=== PATIENT | female | born 1930 | race Caucasian/White ===

== ENCOUNTER 2018-01-25 20:27 | Inpatient (IN) ==
[2018-01-25] MEDS ORDERED: Sod Chloride 0.9% Inj 1,000 ML IV.CONT SCH (21:15)
[2018-01-25] MEDS ORDERED: Labetalol HCl Inj 100 MG/20 ML Vial IV.PUSH ONE (21:15)
--- NOTE | 2018-01-25 21:55 | XR ---
EXAM DATE: 01/25/2018 9:51 PM EDT AGE/SEX: 87 years / Female INDICATIONS: Chest pain. CLINICAL DATA: This is the patient's initial encounter. Patient reports that signs and symptoms have been present for 1 day and indicates a pain score of 10/10. MEDICAL/SURGICAL HISTORY: None. None. COMPARISON: No prior exams available for comparison. FINDINGS: A single AP view of the chest demonstrates the lungs to be symmetrically aerated without evidence of mass, infiltrate or effusion. Tracheal calcifications are present. There are overlying electrocardio gram leads. The cardiomediastinal contours are unremarkable. Osseous structures are intact with mild scoliosis. CONCLUSION: No acute cardiopulmonary disease. Electronically signed by: Howard Taveras MD 01/25/2018 9:54 PM EDT
[2018-01-25 22:23] LABS: Activated Partial Thrombo Time 26.1 sec (24.3-30.1); INR 1.2 Ratio; Prothrombin Time 12.1 sec (9.8-11.6)
--- NOTE | 2018-01-25 22:26 | CT ---
EXAM DATE: 01/25/2018 10:15 PM EDT AGE/SEX: 87 years / Female INDICATIONS: Altered mental status. CLINICAL DATA: This is the patient's initial encounter. Patient reports that signs and symptoms have been present for 1 day and indicates a pain score of 0/10. MEDICAL/SURGICAL HISTORY: Diabetes. Hypertension. None. RADIATION DOSE: 56.35 CTDI (mGy) COMPARISON: No prior exams available for comparison. TECHNIQUE: CT of the head without contrast. Using automated exposure control and adjustment of the mA and/or kV according to patient size, radiation dose was kept as low as reasonably achievable to ob tain optimal diagnostic quality images. DICOM format image data is available electronically for revi ew and comparison. FINDINGS: Cerebrum: The ventricles are normal for age with diffuse moderate atrophic change with sulcal and ve ntricular prominence. Extensive periventricular white matter lucencies are noted characteristic of sm all vessel ischemic change. Calcifications noted in the basal ganglia. No evidence of midline shift, mass lesion, hemorrhage or acute infarction. No extraaxial fluid collections are seen. Posterior Fossa: The cerebellum and brainstem are intact. The 4th ventricle is midline. The cerebe llopontine angle is unremarkable. Extracranial: The visualized portion of the orbits is intact. Skull: The calvaria is intact. No evidence of skull fracture. CONCLUSION: 1. Atrophy and extensive chronic small vessel ischemic changes. Electronically signed by: Howard Taveras MD 01/25/2018 10:25 PM EDT
[2018-01-25 22:42] LABS: Anion Gap 10 meq/L (5-15); Blood Urea Nitrogen 31 mg/dL (7-18); Calcium 8.6 mg/dL (8.5-10.1); Carbon Dioxide 30.1 meq/L (21.0-32.0); Chloride 96 meq/L (98-107); Creatine Kinase 63 U/L (26-192); Glomerular Filtration Rate 72 mL/min (>89); Glucose,Random 370 mg/dL (74-106); Potassium 3.7 meq/L (3.5-5.1); Sodium 136 meq/L (136-145)
--- NOTE | 2018-01-26 00:08 | ED ---
HPI General Chief Complaint: Neuro Symptoms/Deficit Stated Complaint: High Blood sugar Time Seen by Provider: 01/25/18 21:04 History of Present Illness HPI narrative: Patient is a 87-year-old female she lives alone her daughter noticed that she has been having mental deterioration over the last few weeks. Daughter had visited with her about a month ago and now she is finding that the patient seems to not be doing well patient is living in independent living however the visiting nurse who takes care of her meds said the patient is not taking her meds for high blood pressure she is only taking pain medications. The daughter called me to discuss this and she is very worried that she is taking meds that too many pain meds and not taking her pressure meds or her diabetic meds. Tonight she was talking with her mother and the phones thought the mother found it sounded confused and garbled speech the daughter called her aunt who is the patient's sister patient's sister found the patient to have facial droop on the left as well as garbled speech and then halted speech paramedics called patient arrived by EMS in the ER she has no obvious focal deficits initial neuro exam she has no focal deficits whatsoever however in the middle of sentence she will be searching for word and she will stare and stop speaking it seems obvious she is searching for a word and then to stop since midsentence. She is CAT scan labs urine chest x-ray are all ordered patient will probably be admitted for repeat TIA I discussed in detail patient's course with the daughter who calls me from [place]. The patient herself when I asked her if she has any complaints just says she feels cold I ask her what happened tonight she said she was eating dinner in the middle she suddenly just felt very cold that is her only complaint. 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 but she is unaware of what the diagnosis might be possible acute delirium versus progressive dementia versus intoxication with possible pain medication or other Related Data Home Medications Medication Instructions Recorded Confirmed sitagliptin [Januvia] See Label Instructions .ROUTE 01/25/18 01/26/18 .COMPLEX Allergies Allergy/AdvReac Type Severity Reaction Status Date / Time NSAIDS (Non-Steroidal Allergy Hives Verified 01/25/18 21:01 Anti-Inflamma Penicillins Allergy Hives Verified 01/25/18 21:01 Review of Systems Except as stated in HPI: all other systems reviewed are negative COUNTS INCLUDE 234 BEDS AT THE [facility] Medical History Medical History Diabetes (Acute) HTN (hypertension) (Acute) Social History Social History Substance History: No History of Abuse Smoking Status: Former smoker Tobacco Type: Cigarettes How Often Do You Have a Drink Containing Alcohol: Never Recent Travel in [facility] within the Last 8 Weeks: No Recent Out of Country Travel within the Last 8 Weeks: No Course Initial Documented Vital Signs Temperature 98.7 F 01/25/18 21:08 Pulse Rate 96 H 01/25/18 21:08 Respiratory Rate 16 01/25/18 21:08 Blood Pressure 204/97 H 01/25/18 21:08 Pulse Oximetry 91 L 01/25/18 21:08 Last Documented Vital Signs Temperature 98.7 F 01/25/18 21:08 Pulse Rate 85 01/26/18 01:13 Respiratory Rate 16 01/26/18 01:13 Blood Pressure 195/92 H 01/26/18 01:13 Pulse Oximetry 98 01/26/18 01:13 Medical Decision Making [facility] Narrative Medical decision making narrative: Patient is a CT of her head to rule out any bleed or stroke is negative patient has urine that is negative chest x-ray is done it is read as negative however I think there is some kind of focal possible density in the right lower lobe patient's other labs are within normal limits I discussed at length with her daughter who calls me from [place] the deterioration of her mother's mentation over the last few weeks apparently her in April 2017 and patient has been slowly steadily declining at this point I will admit her for further eval neurology consult as well as possible MRI in the morning Differential Diagnosis Differential Diagnosis: Differential diagnosis includes UTI with neural involvement versus TIA versus CVA versus intoxication with opioids progressive deterioration in mental functioning versus a hypothyroidism versus cardiac ischemia causing anoxic brain issues other Lab Data Result diagrams: 01/25/18 21:46 Lab Results 01/25/18 01/25/18 01/25/18 Range/Units 21:46 21:46 21:46 PT 12.1 H (9.8-11.6) sec INR 1.2 Ratio APTT 26.1 (24.3-30.1) sec Sodium 136 (136-145) meq/L Potassium 3.7 (3.5-5.1) meq/L Chloride 96 L (98-107) meq/L Carbon Dioxide 30.1 (21.0-32.0) meq/L Anion Gap 10 (5-15) meq/L BUN 31 H (7-18) mg/dL Creatinine 0.76 (0.50-1.00) mg/dL Estimated GFR 72 L (>89) mL/min Random Glucose 370 H (74-106) mg/dL Calcium 8.6 (8.5-10.1) mg/dL Total Creatine Kinase 63 (26-192) U/L Troponin I Less than 0.02 L (0.02-0.05) ng/mL Blood Type O Positive Blood Type Recheck Required Antibody Screen Negative Imaging Data Radiologist's impression: Head CT 01/25/18 21:15 CONCLUSION: 1. Atrophy and extensive chronic small vessel ischemic changes. Chest X-Ray 01/25/18 21:16 CONCLUSION: No acute cardiopulmonary disease. Discharge Plan Discharge Disposition Patient Disposition: 30 Still Patient Discharge Condition Condition: Stable Discharge Details Diagnosis: Brain TIA Physicians Team ED Provider: Dru Pineda Primary Care Provider: UNKNOWN, Attending Provider: Chelsey Urias Other Providers: Kayden Coker Status ED Status: Admitted Patient
[2018-01-26] MEDS ORDERED: Temazepam 15 MG Capsule PO PRN (00:20)
[2018-01-26] MEDS ORDERED: Bisacodyl 10 MG Supp RECTAL PRN (00:20)
[2018-01-26] MEDS ORDERED: Dextrose 50% in Water 50 ML Vial IV.PUSH PRN (00:20)
[2018-01-26 02:15] LABS: Amorphous Sediment,Urine Rare /hpf; Bacteria,Urine Moderate /hpf; Bilirubin,Urine Negative (Negative); Clarity,Urine Cloudy (Clear); Color,Urine Yellow (Yellw/Straw); Glucose,Urine (UA) 500 or Greater mg/dL (Negative); Leukocyte Esterase,Urine Large (Negative); Mucus,Urine Few /lpf (Occasional); Nitrite,Urine Negative (Negative); Specific Gravity,Urine 1.024 (1.002-1.035); Squamous Epithelial Cell,Urine 21 /hpf (0-5)
[2018-01-26 02:19] LABS: Amphetamine Screen,Urine Neg (Neg); Barbiturate Screen,Urine Neg (Neg); Cannabinoid Screen,Urine Neg (Neg); Cocaine Screen,Urine Neg (Neg)
--- NOTE | 2018-01-26 02:21 | P.HPIM ---
History of Present Illness Primary Care Physician: UNKNOWN History of Present Illness: This is an 87-year-old female with a PMH of HTN and DM who was brought to the ER for facial droop and expressive aphasia. Per report, daughter spoke to patient over the phone and noticed she had some slurred speech, EMS was called approximately 2 hours later at which time symptoms had resolved. Denies any motor weakness. On arrival, BP 221/98, HR 100, O2 sat 98% on 2L NC, Afebrile. S/p Labetalol in ER w/ BP 180's. Chemistry essentially unremarkable. INR 1.2. UA pending. CT Head with atrophy and extensive chronic small vessel ischemic changes. CXR with no acute findings. - Diagnosis (1) TIA (transient ischemic attack) (2) HTN (hypertension) (3) DM (diabetes mellitus) Inpatient Certification: I certify that the inpatient services were ordered in accordance with Medicare regulations governing the order. This includes certification that hospital inpatient services are reasonable and necessary and in the case of services not specified as inpatient-only under 42 CFR 419.22(n), that they are appropriately provided as inpatient services in accordance to with the 2-midnight benchmark under 43 CFR 412.3(e) Estimated Total Length of Stay (Days): 2 Plans for Post Hospital Care: Not yet determined Review of Systems All other systems reviewed negative except as stated in HPI PMFSH - History History Provided By: Patient - Medical History Medical History: Medical History (Last Updated 01/25/18 @ 21:10 by Royce Simpson) Diabetes HTN (hypertension) - Tobacco History Tobacco Use In Past 30 Days: No Smoking Status: Former smoker Tobacco Type: Cigarettes - Alcohol History How Often Do You Have a Drink Containing Alcohol: Never - Substance Use History Substance History: No History of Abuse - Travel History Recent Travel in the [place] Within the Last 8 Weeks: No Recent Travel Out of the Country Within the Last 8 Weeks: No - Immunization History Tetanus Immunization: <5 Years Hx Influenza Vaccine This Season: Yes Medications and Allergies Active Medications: Active Medications Al Hydroxide/Mg Hydroxide (Milk Of Magnaide Liq) 30 ml PO Q12H PRN PRN Reason: Mild Constipation Bisacodyl (Dulcolax Supp) 10 mg RECTAL DAILY PRN PRN Reason: SEVERE CONSITIPATION Dextrose (D50w Vial) 50 ml IV.PUSH UNSCH PRN PRN Reason: PER HYPOGLYCEMIA PROTOCOL Enalaprilat (Vasotec Inj) 1.25 mg IV.PUSH Q4H PRN PRN Reason: For SBP > 220 or DBP > 120 Glucagon (Glucagon Inj) 1 mg OTHER PRN PRN PRN Reason: for Hypoglycemia Protocol Sodium Chloride (Ns Inj) 1,000 mls @ 70 mls/hr IV.CONT .[id number] [facility] Stop: 01/26/18 11:32 Last Admin: 01/25/18 21:32 Dose: 70 mls/hr Insulin Aspart (Novolog Insulin Correctional Sugar Inj) 0 unit SQ ACHS RAMÍREZ; Protocol Lactulose (Lactulose Liq) 30 ml PO DAILY PRN PRN Reason: SEVERE CONSITIPATION Ondansetron HCl (Zofran Odt) 4 mg PO Q6H PRN PRN Reason: NAUSEA OR VOMITING Pravastatin Sodium (Pravachol) 40 mg PO HS RAMÍREZ Senna/Docusate Sodium (Ailyn-Colace) 1 tab PO BID [facility] Sennosides (Senokot) 17.2 mg PO Q12H PRN PRN Reason: Moderate Constipation Sodium Chloride (Ns Flush) 2 ml IV.FLUSH PRN PRN PRN Reason: FLUSH AFTER USING IV ACCESS Sodium Chloride (Ns Flush) 2 ml IV.FLUSH BID RAMÍREZ Sodium Chloride (Ns Flush) 2 ml IV.FLUSH PRN PRN PRN Reason: FLUSH AFTER USING IV ACCESS Temazepam (Restoril) 15 mg PO HS PRN PRN Reason: INSOMNIA Allergies Allergy/AdvReac Type Severity Reaction Status Date / Time NSAIDS (Non-Steroidal Allergy Hives Verified 01/25/18 21:01 Anti-Inflamma Penicillins Allergy Hives Verified 01/25/18 21:01 Home Medications Medication Instructions Recorded Confirmed Type sitagliptin [Januvia] See Label Instructions .ROUTE 01/25/18 01/26/18 History .COMPLEX Exam Vital signs: Vital Signs 01/25/18 21:08 01/25/18 21:11 01/25/18 22:01 Temperature 98.7 F Pulse Rate 96 H 100 H 91 H Respiratory Rate 16 18 18 Blood Pressure 204/97 H 221/98 H 193/84 H Pulse Oximetry 91 L 98 98 01/25/18 22:16 01/25/18 22:22 01/25/18 23:30 Temperature Pulse Rate 87 Respiratory Rate 18 Blood Pressure 186/91 H 186/91 H Pulse Oximetry 98 97 01/26/18 01:13 Temperature Pulse Rate 85 Respiratory Rate 16 Blood Pressure 195/92 H Pulse Oximetry 98 Intake & Output 01/25/18 01/25/18 01/26/18 06:59 18:59 06:59 Weight 65.771 kg Other: # Voids 1 Narrative: PE: GENERAL: Very pleasant elderly white female in no acute distress. HEENT: PERRLA, EOMI. No scleral icterus or conjunctival pallor. No lid lag or facial droop. CARDIOVASCULAR: Regular rate and rhythm. No obvious murmurs to auscultation. No chest tenderness to palpation. RESPIRATORY: No obvious rhonchi or wheezing. Clear to auscultation. Breath sounds equal bilaterally. GASTROINTESTINAL: Abdomen soft, non-tender, nondistended. BS normal. MUSCULOSKELETAL: Extremities without clubbing, cyanosis, or edema. No obvious deformities. NEUROLOGICAL: Awake, alert and oriented x4. No focal neurologic deficits. Moving both upper and lower extremities spontaneously. Results - Labs CBC & Chem 7: 01/25/18 21:46 Labs: BMP 01/25/18 21:46 Sodium 136 Potassium 3.7 Chloride 96 L Carbon Dioxide 30.1 BUN 31 H Creatinine 0.76 Calcium 8.6 Cardiac Enzymes 01/25/18 Range/Units 21:46 Total Creatine Kinase 63 (26-192) U/L Troponin I Less than 0.02 L (0.02-0.05) ng/mL - Imaging Impressions Head CT 01/25/18 21:15 CONCLUSION: 1. Atrophy and extensive chronic small vessel ischemic changes. Chest X-Ray 01/25/18 21:16 CONCLUSION: No acute cardiopulmonary disease. Caprini VTE Risk Assessment Caprini VTE Risk Assessment: No/Low Risk (score <= 1) Caprini Risk Assessment Model: Point Value = 1 Point Value = 2 Point Value = 3 Point Value = 5 Age 41-60 Minor surgery BMI > 25 kg/m2 Swollen legs Varicose veins or History of unexplained or recurrent spontaneous Oral contraceptives or hormone replacement Sepsis (< 1 month) Serious lung disease, including pneumonia (< 1 month) Abnormal pulmonary function Acute myocardial infarction Congestive heart failure (< 1 month) History of inflammatory bowel disease Medical patient at bed rest Age 61-74 Arthroscopic surgery Major open surgery (> 45 min) Laparoscopic surgery (> 45 min) Malignancy Confined to bed (> 72 hours) Immobilizing plaster cast Central venous access Age >= 75 History of VTE Family history of VTE Factor V Leiden Prothrombin [id number] Lupus anticoagulant Anticardiolipin antibodies Elevated serum homocysteine Heparin-induced thrombocytopenia Other congenital or acquired thrombophilia Stroke (< 1 month) Elective arthroplasty Hip, pelvis, or leg fracture Acute spinal cord injury (< 1 month) Prophylaxis Regimen: Total Risk Factor Score Risk Level Prophylaxis Regimen 0-1 Low Early ambulation 2 Moderate Order ONE of the following: *Sequential Compression Device (SCD) *Heparin 5000 units SQ BID 3-4 Higher Order ONE of the following medications: *Heparin 5000 units SQ TID *Enoxaparin/Lovenox 40 mg SQ daily (WT < 150 kg, CrCl > 30 mL/min) *Enoxaparin/Lovenox 30 mg SQ daily (WT < 150 kg, CrCl > 10-29 mL/min) *Enoxaparin/Lovenox 30 mg SQ BID (WT < 150 kg, CrCl > 30 mL/min) AND/OR *Sequential Compression Device (SCD) 5 or more Highest Order ONE of the following medications: *Heparin 5000 units SQ TID (Preferred with Epidurals) *Enoxaparin/Lovenox 40 mg SQ daily (WT < 150 kg, CrCl > 30 mL/min) *Enoxaparin/Lovenox 30 mg SQ daily (WT < 150 kg, CrCl > 10-29 mL/min) *Enoxaparin/Lovenox 30 mg SQ BID (WT < 150 kg, CrCl > 30 mL/min) AND *Sequential Compression Device (SCD) Assessment and Plan - Assessment (1) TIA (transient ischemic attack) Code(s): G45.9 - Transient cerebral ischemic attack, unspecified Status: Acute (2) HTN (hypertension) Code(s): I10 - Essential (primary) hypertension Status: Acute (3) DM (diabetes mellitus) Code(s): E11.9 - Type 2 diabetes mellitus without complications Status: Acute - Plan A/P: 1. TIA: acute onset slurred/garbled speech and facial droop noted by family, resolved by the time of arrival to ER. CT Head w/ no acute findings, images reviewed. Admit for further workup. Check MRI Brain, Lipid Profile, Hgb A1c. Neuro Checks. IVF for hydration. Consult PT/Speech as needed. Consult Neurology for further evaluation/recommendations. Hold ASA due to Allergy, Statin. 2. HTN: Uncontrolled. BP 220's on arrival, s/p Labetalol, now BP 180's, will allow for permissive HTN, antihypertensives for BP >220. Monitor. 3. DM: Uncontrolled. Sliding scale w/ Accu-Cheks, check Hgb A1c 4. DVT Prophylaxis: SCDs/teds. 5. Social work for DC planning as needed. 6. Case discussed at length with the ER physician, lab/record/imaging reviewed by me.
[2018-01-26 02:42] LABS: Opiate Screen,Urine Neg (Neg)
[2018-01-26] MEDS: Insulin NovoLOG Aspart Correctional Sugar Inj SQ SCH ×4 (09:38→21:50)
[2018-01-26] MEDS: Senna/Docusate Sodium 8.6/50 MG Tablet PO SCH ×2 (09:39→21:50)
--- NOTE | 2018-01-26 10:11 | P.CONNEU ---
History of Present Illness Service: Neurology Primary Care Provider: UNKNOWN History of Present Illness: 87-year-old female with a PMH of HTN and DM who was brought to the ER for facial droop and expressive aphasia. Per report, daughter spoke to patient over the phone and noticed she had some slurred speech, EMS was called approximately 2 hours later at which time symptoms had resolved. Denies any motor weakness. On arrival, BP 221/98, No previous history of TIA or stroke. Denies taking any blood thinners at home. Feels well this morning. States she lives alone her family lives close to her she lives in [place] where . CT Head with atrophy and extensive chronic small vessel ischemic changes. Review of Systems All other systems reviewed negative except as stated [facility] - History History Provided By: Patient - Medical History Medical History: Medical History (Last Reviewed 01/26/18 @ 08:44 by Fannie Magana) Diabetes HTN (hypertension) - Tobacco History Second Hand Smoke Exposure: No Tobacco Use In Past 30 Days: No (QUIT 40 YEARS AGO) Smoking Status: Former smoker Tobacco Type: Cigarettes - Alcohol History How Often Do You Have a Drink Containing Alcohol: Never - Substance Use History Substance History: No History of Abuse - Travel History Recent Travel in the [place] Within the Last 8 Weeks: No Recent Travel Out of the Country Within the Last 8 Weeks: No - Immunization History Tetanus Immunization: <5 Years Hx Influenza Vaccine This Season: Yes Medications and Allergies Active Medications: Active Medications Al Hydroxide/Mg Hydroxide (Milk Of Mayra Calles) 30 ml PO Q12H PRN PRN Reason: Mild Constipation Bisacodyl (Dulcolax Supp) 10 mg RECTAL DAILY PRN PRN Reason: SEVERE CONSITIPATION Dextrose (D50w Vial) 50 ml IV.PUSH UNSCH PRN PRN Reason: PER HYPOGLYCEMIA PROTOCOL Enalaprilat (Vasotec Inj) 1.25 mg IV.PUSH Q4H PRN PRN Reason: For SBP > 220 or DBP > 120 Glucagon (Glucagon Inj) 1 mg OTHER PRN PRN PRN Reason: for Hypoglycemia Protocol Sodium Chloride (Ns Inj) 1,000 mls @ 70 mls/hr IV.CONT .[id number] RAMÍREZ Stop: 01/26/18 11:32 Last Admin: 01/25/18 21:32 Dose: 70 mls/hr Insulin Aspart (Novolog Insulin Correctional Sugar Inj) 0 unit SQ ACHS [facility]; Protocol Last Admin: 01/26/18 09:38 Dose: 5 unit Lactulose (Lactulose Liq) 30 ml PO DAILY PRN PRN Reason: SEVERE CONSITIPATION Ondansetron HCl (Zofran Odt) 4 mg PO Q6H PRN PRN Reason: NAUSEA OR VOMITING Pravastatin Sodium (Pravachol) 40 mg PO HS [facility] Senna/Docusate Sodium (Ailyn-Colace) 1 tab PO BID [facility] Last Admin: 01/26/18 09:39 Dose: 1 tab Sennosides (Senokot) 17.2 mg PO Q12H PRN PRN Reason: Moderate Constipation Sodium Chloride (Ns Flush) 2 ml IV.FLUSH PRN PRN PRN Reason: FLUSH AFTER USING IV ACCESS Sodium Chloride (Ns Flush) 2 ml IV.FLUSH BID [facility] Last Admin: 01/26/18 09:39 Dose: Not Given Sodium Chloride (Ns Flush) 2 ml IV.FLUSH PRN PRN PRN Reason: FLUSH AFTER USING IV ACCESS Temazepam (Restoril) 15 mg PO HS PRN PRN Reason: INSOMNIA Allergies Allergy/AdvReac Type Severity Reaction Status Date / Time NSAIDS (Non-Steroidal Allergy Hives Verified 01/25/18 21:01 Anti-Inflamma Penicillins Allergy Hives Verified 01/25/18 21:01 Home Medications Medication Instructions Recorded Confirmed Type sitagliptin [Januvia] See Label Instructions .ROUTE 01/25/18 01/26/18 History .COMPLEX Exam Vital signs: Vital Signs 01/25/18 21:08 01/25/18 21:11 01/25/18 22:01 Temperature 98.7 F Pulse Rate 96 H 100 H 91 H Respiratory Rate 16 18 18 Blood Pressure 204/97 H 221/98 H 193/84 H Pulse Oximetry 91 L 98 98 01/25/18 22:16 01/25/18 22:22 01/25/18 23:30 Temperature Pulse Rate 87 Respiratory Rate 18 Blood Pressure 186/91 H 186/91 H Pulse Oximetry 98 97 01/26/18 01:13 01/26/18 02:52 01/26/18 04:30 Temperature Pulse Rate 85 89 Respiratory Rate 16 16 Blood Pressure 195/92 H 185/80 H 208/97 H Pulse Oximetry 98 01/26/18 08:00 Temperature 99.1 F Pulse Rate 96 H Respiratory Rate 17 Blood Pressure 202/70 H Pulse Oximetry 95 Intake & Output 01/25/18 01/26/18 01/26/18 18:59 06:59 18:59 Weight 65.8 kg Other: # Voids 1 Narrative: Skin intact, no lymphadenopathy no head or neck trauma pulse regular lungs clear abdomen soft nontender, Awake alert oriented 3 fluent articulate visual [place] full no facial asymmetry tongue midline able to name. Strength 5 out of 5 upper lower limbs no pronator drift reflexes symmetric sensory within normal limits no neglect noted no dystaxia gait not assessed secondary to fall risk - Constitutional no acute distress - Routine HEENT Exam Head: Present: normocephalic, atraumatic Eye: Present: EOMI Results - Labs CBC & Chem 7: 01/25/18 21:46 Labs: Laboratory Results - last 24 hr 01/25/18 01/25/18 01/25/18 21:46 21:46 21:46 PT 12.1 H INR 1.2 APTT 26.1 Sodium 136 Potassium 3.7 Chloride 96 L Carbon Dioxide 30.1 Anion Gap 10 BUN 31 H Creatinine 0.76 Estimated GFR 72 L POC Glucose Random Glucose 370 H Calcium 8.6 Total Creatine Kinase 63 Troponin I Less than 0.02 L Urine Color Urine Clarity Urine pH Ur Specific [place] Urine Protein Urine Glucose (UA) Urine Ketones Urine Occult Blood Urine Nitrate Urine Bilirubin Urine Urobilinogen Ur Leukocyte Esterase Urine RBC Urine WBC Ur Squamous Epith Cells Amorphous Sediment Urine Bacteria Urine Mucus Micro UA Comment Urine Culture Comments Urine Opiates Screen Ur Barbiturates Screen Ur Amphetamines Screen U Benzodiazepines Scrn Urine Cocaine Screen U Cannabinoids Screen Blood Type O Positive Blood Type Recheck Required Antibody Screen Negative 01/26/18 01/26/18 01/26/18 01:55 01:55 04:30 PT INR APTT Sodium Potassium Chloride Carbon Dioxide Anion Gap BUN Creatinine Estimated GFR POC Glucose 301 H Random Glucose Calcium Total Creatine Kinase Troponin I Urine Color Yellow Urine Clarity Cloudy H Urine pH 5.0 Ur Specific [place] 1.024 Urine Protein 30 H Urine Glucose (UA) 500 or greater Urine Ketones 20 Urine Occult Blood Small H Urine Nitrate Negative Urine Bilirubin Negative Urine Urobilinogen Less than 2 Ur Leukocyte Esterase Large H Urine RBC 25 H Urine WBC 97 H Ur Squamous Epith Cells 21 Amorphous Sediment Rare H Urine Bacteria Moderate H Urine Mucus Few H Micro UA Comment Culture indicated Urine Culture Comments Culture indicated Urine Opiates Screen Neg Ur Barbiturates Screen Neg Ur Amphetamines Screen Neg U Benzodiazepines Scrn Neg Urine Cocaine Screen Neg U Cannabinoids Screen Neg Blood Type Blood Type Recheck Antibody Screen 01/26/18 07:50 PT INR APTT Sodium Potassium Chloride Carbon Dioxide Anion Gap BUN Creatinine Estimated GFR POC Glucose 280 H Random Glucose Calcium Total Creatine Kinase Troponin I Urine Color Urine Clarity Urine pH Ur Specific [place] Urine Protein Urine Glucose (UA) Urine Ketones Urine Occult Blood Urine Nitrate Urine Bilirubin Urine Urobilinogen Ur Leukocyte Esterase Urine RBC Urine WBC Ur Squamous Epith Cells Amorphous Sediment Urine Bacteria Urine Mucus Micro UA Comment Urine Culture Comments Urine Opiates Screen Ur Barbiturates Screen Ur Amphetamines Screen U Benzodiazepines Scrn Urine Cocaine Screen U Cannabinoids Screen Blood Type Blood Type Recheck Antibody Screen - Imaging Impressions Head CT 01/25/18 21:15 CONCLUSION: 1. Atrophy and extensive chronic small vessel ischemic changes. Chest X-Ray 01/25/18 21:16 CONCLUSION: No acute cardiopulmonary disease. Review/Management - Diagnosis (1) TIA (transient ischemic attack) Code(s): G45.9 - Transient cerebral ischemic attack, unspecified Status: Acute Current Visit: Yes (2) HLD (hyperlipidemia) Code(s): E78.5 - Hyperlipidemia, unspecified Status: Acute Current Visit: Yes (3) HTN (hypertension) Code(s): I10 - Essential (primary) hypertension Status: Acute Current Visit : Yes (4) DM (diabetes mellitus) Code(s): E11.9 - Type 2 diabetes mellitus without complications Status: Acute Current Visit: Yes - Review/Management Plan: Symptoms suggestive of left MCA TIA In addition. Have hypertensive encephalopathy Recommendations Follow-up MRI MRA brain 2D echo, carotid Doppler Fasting lipids HbA1c Blood pressure control Aspirin Plavix. Stop aspirin after 3 months Telemetry Should get event monitor long-term heart monitoring by cardiology in versus outpatient defer to medical PT evaluation If stable discharge planning for tomorrow (1) TIA (transient ischemic attack) Qualifiers: Transient cerebral ischemia type: carotid artery syndrome (hemispheric) Qualified Code(s): G45.1 - Carotid artery syndrome (hemispheric)
--- NOTE | 2018-01-26 12:11 | P.PN ---
Subjective Interval history: Follow up for acute stroke. Patient is doing well. No acute concerns. Denies any chest pain, shortness of breath, fever or chills. She feels that her speech is at baseline. She reports no focal deficits. Physical Exam Vital signs: Vital Signs 01/25/18 21:08 01/25/18 21:11 01/25/18 22:01 Temperature 98.7 F Pulse Rate 96 H 100 H 91 H Respiratory Rate 16 18 18 Blood Pressure 204/97 H 221/98 H 193/84 H Pulse Oximetry 91 L 98 98 01/25/18 22:16 01/25/18 22:22 01/25/18 23:30 Temperature Pulse Rate 87 Respiratory Rate 18 Blood Pressure 186/91 H 186/91 H Pulse Oximetry 98 97 01/26/18 01:13 01/26/18 02:52 01/26/18 04:30 Temperature Pulse Rate 85 89 Respiratory Rate 16 16 Blood Pressure 195/92 H 185/80 H 208/97 H Pulse Oximetry 98 01/26/18 08:00 Temperature 99.1 F Pulse Rate 96 H Respiratory Rate 17 Blood Pressure 202/70 H Pulse Oximetry 95 Intake & Output 01/25/18 01/26/18 01/26/18 18:59 06:59 18:59 Weight 65.8 kg Other: # Voids 1 Narrative: GENERAL: Alert, NAD. SKIN: Warm and dry. HEAD: Normocephalic. EYES: No scleral icterus. No injection or drainage. NECK: Supple, trachea midline. No JVD or lymphadenopathy. CARDIOVASCULAR: Regular rate and rhythm without murmurs, gallops, or rubs. RESPIRATORY: Breath sounds equal bilaterally. No accessory muscle use. GASTROINTESTINAL: Abdomen soft, non-tender, nondistended. MUSCULOSKELETAL: No cyanosis, or edema. BACK: Nontender without obvious deformity. No CVA tenderness. Results - Labs CBC & Chem 7: 01/25/18 21:46 Laboratory Results - last 24 hr 01/25/18 01/25/18 01/25/18 21:46 21:46 21:46 PT 12.1 H INR 1.2 APTT 26.1 Sodium 136 Potassium 3.7 Chloride 96 L Carbon Dioxide 30.1 Anion Gap 10 BUN 31 H Creatinine 0.76 Estimated GFR 72 L POC Glucose Random Glucose 370 H Calcium 8.6 Total Creatine Kinase 63 Troponin I Less than 0.02 L Urine Color Urine Clarity Urine pH Ur Specific [place] Urine Protein Urine Glucose (UA) Urine Ketones Urine Occult Blood Urine Nitrate Urine Bilirubin Urine Urobilinogen Ur Leukocyte Esterase Urine RBC Urine WBC Ur Squamous Epith Cells Amorphous Sediment Urine Bacteria Urine Mucus Micro UA Comment Urine Culture Comments Urine Opiates Screen Ur Barbiturates Screen Ur Amphetamines Screen U Benzodiazepines Scrn Urine Cocaine Screen U Cannabinoids Screen Blood Type O Positive Blood Type Recheck Required Antibody Screen Negative 01/26/18 01/26/18 01/26/18 01:55 01:55 04:30 PT INR APTT Sodium Potassium Chloride Carbon Dioxide Anion Gap BUN Creatinine Estimated GFR POC Glucose 301 H Random Glucose Calcium Total Creatine Kinase Troponin I Urine Color Yellow Urine Clarity Cloudy H Urine pH 5.0 Ur Specific [place] 1.024 Urine Protein 30 H Urine Glucose (UA) 500 or greater Urine Ketones 20 Urine Occult Blood Small H Urine Nitrate Negative Urine Bilirubin Negative Urine Urobilinogen Less than 2 Ur Leukocyte Esterase Large H Urine RBC 25 H Urine WBC 97 H Ur Squamous Epith Cells 21 Amorphous Sediment Rare H Urine Bacteria Moderate H Urine Mucus Few H Micro UA Comment Culture indicated Urine Culture Comments Culture indicated Urine Opiates Screen Neg Ur Barbiturates Screen Neg Ur Amphetamines Screen Neg U Benzodiazepines Scrn Neg Urine Cocaine Screen Neg U Cannabinoids Screen Neg Blood Type Blood Type Recheck Antibody Screen 01/26/18 07:50 PT INR APTT Sodium Potassium Chloride Carbon Dioxide Anion Gap BUN Creatinine Estimated GFR POC Glucose 280 H Random Glucose Calcium Total Creatine Kinase Troponin I Urine Color Urine Clarity Urine pH Ur Specific [place] Urine Protein Urine Glucose (UA) Urine Ketones Urine Occult Blood Urine Nitrate Urine Bilirubin Urine Urobilinogen Ur Leukocyte Esterase Urine RBC Urine WBC Ur Squamous Epith Cells Amorphous Sediment Urine Bacteria Urine Mucus Micro UA Comment Urine Culture Comments Urine Opiates Screen Ur Barbiturates Screen Ur Amphetamines Screen U Benzodiazepines Scrn Urine Cocaine Screen U Cannabinoids Screen Blood Type Blood Type Recheck Antibody Screen - Imaging Impressions Head CT 01/25/18 21:15 CONCLUSION: 1. Atrophy and extensive chronic small vessel ischemic changes. Chest X-Ray 01/25/18 21:16 CONCLUSION: No acute cardiopulmonary disease. Assessment and Plan - Assessment (1) TIA (transient ischemic attack) Code(s): G45.9 - Transient cerebral ischemic attack, unspecified Status: Acute (2) HTN (hypertension) Code(s): I10 - Essential (primary) hypertension Status: Acute (3) DM (diabetes mellitus) Code(s): E11.9 - Type 2 diabetes mellitus without complications Status: Acute - Plan This is an 87-year-old female with a PMH of HTN and DM who was brought to the ER for facial droop and expressive aphasia. CT head did not show any acute findings. Probable Acute CVA -Neurology evaluated patient. Patient likely has left MCA TIA. -Neurology recommends aspirin as well as Plavix and stopping aspirin after 3 months. -We will switch pravastatin to Lipitor 40 mg nightly. -2D echo and carotid Doppler as well as MRI and MRA brain pending. -We will recommend outpatient cardiology follow-up for event monitor. Diabetes mellitus -Patient takes Januvia 50 mg at home. -Currently she is on sliding scale insulin. Will add Levemir 7 units nightly. Full code. Lovenox for DVT prophylaxis. Discharge plan: Possibly on 01/27/2018. (1) TIA (transient ischemic attack) Qualifiers: Transient cerebral ischemia type: carotid artery syndrome (hemispheric) Qualified Code(s): G45.1 - Carotid artery syndrome (hemispheric)
[2018-01-26] MEDS: Enoxaparin Inj 40 MG/0.4 ML Syringe SQ SCH (12:24)
--- NOTE | 2018-01-26 13:07 | MR ---
EXAM DATE: 01/26/2018 12:57 PM EDT AGE/SEX: 87 years / Female INDICATIONS: Altered mental status. CLINICAL DATA: This is the patient's initial encounter. Patient reports that signs and symptoms have been present for 1 day and indicates a pain score of 0/10. MEDICAL/SURGICAL HISTORY: Diabetes mellitus type II. Hypertension. Hysterectomy. [place] [facility] [place]. . TECHNIQUE: Multiplanar, multisequence examination of the brain was performed without contrast. FINDINGS: There is diffuse moderate atrophic change with sulcal and ventricular prominence. Extensive periventr icular white matter signal abnormality is noted characteristic of chronic small vessel ischemic daniel e. This is fairly symmetric in distribution. There is no acute hemorrhage, mass or evidence of restri cted diffusion on the echoplanar weighted images. Posterior fossa and brainstem are unremarkable. The re are no extra-axial fluid collections. CONCLUSION: 1. Moderate atrophic changes and extensive chronic small vessel ischemic change. 2. No acute hemorrhage, mass or evidence of acute infarction. Electronically signed by: Howard Taveras MD 01/26/2018 1:05 PM EDT
--- NOTE | 2018-01-26 13:24 | MR ---
EXAM DATE: 01/26/2018 12:57 PM EDT AGE/SEX: 87 years / Female INDICATIONS: Altered mental status. CLINICAL DATA: This is the patient's initial encounter. Patient reports that signs and symptoms have been present for 1 day and indicates a pain score of 0/10. MEDICAL/SURGICAL HISTORY: Diabetes mellitus type II. Hypertension. Hysterectomy. COMPARISON: [facility] – [place], [place] HEAD W/O CONTRAST, 01/26/2018. . TECHNIQUE: 3D [id number] MRA was performed. Source images, multiplanar STS MIP, and 3D volum e MIP reconstructions were reviewed. FINDINGS: There is excellent visualization of the major intracranial arteries out to the second-order branch ve ssels. There is no evidence for aneurysm, vessel truncation or stenosis, and no evidence for vascula r malformation. CONCLUSION: 1. Negative MRA head. Electronically signed by: Bharat Cruz MD 01/26/2018 1:23 PM EDT
--- NOTE | 2018-01-26 15:32 | ECHRPT ---
Indication: ATRIAL FIB/FLUTTER CONCLUSIONS The left ventricular systolic function is normal with an estimated ejection fraction in the range of 60-65%. Normal left ventricular size. Wall thickness is measured at the upper limits of normal. The left ventricular systolic function is grossly normal on limited imaging. Mild mitral valve regurgitation. Mild mitral annular calcification. Aortic valve sclerosis is present. There is mild tricuspid valve regurgitation. The estimated pulmonary arterial pressure is 48.2 mmHg. BP: / HR: Rhythm: Sinus MEASUREMENTS (Male / Female) Normal Values Technical Quality:Fair 2D ECHO LV Diastolic Diameter PLAX 3.2 cm 4.2 - 5.9 / 3.9 - 5.3 cm LV Systolic Diameter PLAX 1.9 cm IVS Diastolic Thickness 1.0 cm 0.6 - 1.0 / 0.6 - 0.9 cm LVPW Diastolic Thickness 1.0 cm 0.6 - 1.0 / 0.6 - 0.9 cm LV Relative Wall Thickness 0.6 RV Internal Dim ED PLAX 2.4 cm LVOT Diameter 1.7 cm Aortic Root Diameter 2.8 cm LA Systolic Diameter LX 3.3 cm 3.0 - 4.0 / 2.7 - 3.8 cm M-MODE AV Cusp Separation MM 1.4 cm DOPPLER AV Peak Velocity 195.0 cm/s AV Peak Gradient 15.2 mmHg AV Mean Gradient 9.0 mmHg AV Velocity Time Integral 33.7 cm LVOT Peak Velocity 83.6 cm/s LVOT Peak Gradient 2.8 mmHg LVOT Velocity Time Integral 16.9 cm AV Area Cont Eq vti 1.1 cm AV Area Cont Eq pk 1.0 cm Mitral E Point Velocity 85.0 cm/s Mitral A Point Velocity 149.0 cm/s Mitral E to A Ratio 0.6 LV E' Lateral Velocity 5.0 cm/s Mitral E to LV E' Lateral Ratio 17.1 LV E' Septal Velocity 4.2 cm/s Mitral E to LV E' Septal Ratio 20.3 TR Peak Velocity 309.0 cm/s TR Peak Gradient 38.2 mmHg Right Atrial Pressure 10.0 mmHg Pulmonary Artery Systolic Pressu 48.2 mmHg Right Ventricular Systolic Press 48.2 mmHg PV Peak Velocity 99.3 cm/s PV Peak Gradient 3.9 mmHg FINDINGS LEFT VENTRICLE Normal left ventricular size. Wall thickness is measured at the upper limits of normal. The left ventricular systolic function is grossly normal on limited imaging. The left ventricular systolic function is normal with an estimated ejection fraction in the range of 60-65%. Doppler parameters are consistent with impaired left ventricular relaxtion (grade 1 diastolic dysfun ction). RIGHT VENTRICLE Normal right ventricular size and systolic function. LEFT ATRIUM The left atrial size is normal. RIGHT ATRIUM The right atrial size is normal. ATRIAL SEPTUM The interatrial septum not well visualized. AORTA The aortic root and proximal ascending aorta are normal in size on limited imaging. MITRAL VALVE Mild mitral valve regurgitation. Mild mitral annular calcification. AORTIC VALVE Aortic valve sclerosis is present. Trileaflet aortic valve. No aortic valve stenosis or regurgitation. TRICUSPID VALVE There is mild tricuspid valve regurgitation. The estimated pulmonary arterial pressure is 48.2 mmHg. PULMONARY VALVE No pulmonary valve regurgitation or stenosis. VESSELS The inferior vena cava was not well visualized. The inferior vena cava was not well visualized. PERICARDIUM No pericardial effusion. Royce Shearer MD (Electronically Signed) Final Date:26 January 2018 15:31
--- NOTE | 2018-01-26 17:09 | US ---
EXAM DATE: 01/26/2018 4:37 PM EDT AGE/SEX: 87 years / Female INDICATIONS: Facial droop, expressive aphasia. CLINICAL DATA: This is the patient's initial encounter. Patient reports that signs and symptoms have been present for 1 day and indicates a pain score of 0/10. MEDICAL/SURGICAL HISTORY: Hypertension. Diabetes. None. COMPARISON: No prior exams available for comparison. VELOCITY PARAMETERS: ICA/CCA Ratio: Right 0.6 , Left 0.8 ICA: Right 62.5 cm/sec, Left 64,6 cm/sec CCA: Right 111.3 cm/sec, Left 77.6 cm/sec ECA: Right 75.7 cm/sec, Left 65.9 cm/sec Vertebral: Right 68.0 cm/sec antegrade, Left 52.6 cm/sec antegrade FINDINGS: Right Carotid: Mild arteriosclerotic plaque is visualized.The waveforms are within normal limits. Left Carotid: Mild arteriosclerotic plaque is visualized. The waveforms are within normal limits. Other: None. CONCLUSION: 1. Right Internal Carotid Artery: Mild visible plaque without stenosis. 2. Left Internal Carotid Artery: Mild visible plaque without stenosis. Electronically signed by: Bharat Cruz MD 01/26/2018 5:07 PM EDT
[2018-01-26] MEDS: Insulin Detemir Inj 1,000 UNIT/10 ML Vial SQ SCH (21:50)
--- NOTE | 2018-01-27 08:03 | P.PNNEU ---
Subjective Subjective Comments: No acute events reported No headache No chest pain No dyspnea Active Medications: Active Medications Al Hydroxide/Mg Hydroxide (Milk Of Magnesia Liq) 30 ml PO Q12H PRN PRN Reason: Mild Constipation Aspirin (Ecotrin) 81 mg PO DAILY [facility] Atorvastatin Calcium (Lipitor) 40 mg PO HS [facility] Last Admin: 01/26/18 21:50 Dose: 40 mg Bisacodyl (Dulcolax Supp) 10 mg RECTAL DAILY PRN PRN Reason: SEVERE CONSITIPATION Clopidogrel Bisulfate (Plavix) 75 mg PO DAILY [facility] Last Admin: 01/26/18 12:24 Dose: 75 mg Dextrose (D50w Vial) 50 ml IV.PUSH UNSCH PRN PRN Reason: PER HYPOGLYCEMIA PROTOCOL Enalaprilat (Vasotec Inj) 1.25 mg IV.PUSH Q4H PRN PRN Reason: For SBP > 220 or DBP > 120 Enoxaparin Sodium (Lovenox Inj) 40 mg SQ DAILY [facility] Last Admin: 01/26/18 12:24 Dose: 40 mg Glucagon (Glucagon Inj) 1 mg OTHER PRN PRN PRN Reason: for Hypoglycemia Protocol Insulin Aspart (Novolog Insulin Correctional Sugar Inj) 0 unit SQ [facility]; Protocol Last Admin: 01/26/18 21:50 Dose: 100 unit Insulin Detemir (Levemir Inj) 7 unit SQ [facility] Last Admin: 01/26/18 21:50 Dose: 7 unit Lactulose (Lactulose Liq) 30 ml PO DAILY PRN PRN Reason: SEVERE CONSITIPATION Ondansetron HCl (Zofran Odt) 4 mg PO Q6H PRN PRN Reason: NAUSEA OR VOMITING Senna/Docusate Sodium (Ailyn-Colace) 1 tab PO BID [facility] Last Admin: 01/26/18 21:50 Dose: Not Given Sennosides (Senokot) 17.2 mg PO Q12H PRN PRN Reason: Moderate Constipation Sodium Chloride (Ns Flush) 2 ml IV.FLUSH PRN PRN PRN Reason: FLUSH AFTER USING IV ACCESS Sodium Chloride (Ns Flush) 2 ml IV.FLUSH BID [facility] Last Admin: 01/26/18 21:50 Dose: 2 ml Sodium Chloride (Ns Flush) 2 ml IV.FLUSH PRN PRN PRN Reason: FLUSH AFTER USING IV ACCESS Temazepam (Restoril) 15 mg PO HS PRN PRN Reason: INSOMNIA Allergies/Adverse Reactions: Allergies Allergy/AdvReac Type Severity Reaction Status Date / Time NSAIDS (Non-Steroidal Allergy Hives Verified 01/25/18 21:01 Anti-Inflamma Penicillins Allergy Hives Verified 01/25/18 21:01 Review of Systems All other systems reviewed negative except as stated in HPI Physical Exam Vital signs: Vital Signs 01/26/18 09:00 01/26/18 12:00 01/26/18 16:00 Temperature 98.1 F 97.7 F Pulse Rate 94 H 93 H 111 H Respiratory Rate 16 18 Blood Pressure 180/74 H 133/77 Pulse Oximetry 96 92 L 01/26/18 20:00 01/26/18 22:38 01/27/18 00:00 Temperature 98.8 F 98.2 F Pulse Rate 104 H 120 H Respiratory Rate 16 17 Blood Pressure 167/89 H 176/96 H Pulse Oximetry 93 L 93 L 93 L 01/27/18 01:00 01/27/18 04:00 Temperature 98.2 F Pulse Rate 116 H 110 H Respiratory Rate 16 Blood Pressure 182/94 H Pulse Oximetry 94 L Intake & Output 01/26/18 01/27/18 01/27/18 18:59 06:59 18:59 Intake Total 720 / 720 Output Total 800 / 800 Balance -80 / -80 Weight 65.6 kg Intake: Oral 720 / 720 Output: Urine 800 / 800 Other: Date of Last Bowel Movement 01/27/18 # Bowel Movements 1 1 Narrative: GENERAL: Alert, NAD. SKIN: Warm and dry. HEAD: Normocephalic. EYES: No scleral icterus. No injection or drainage. NECK: Supple, trachea midline. No JVD or lymphadenopathy. CARDIOVASCULAR: Regular rate and rhythm without murmurs, gallops, or rubs. RESPIRATORY: Breath sounds equal bilaterally. No accessory muscle use. GASTROINTESTINAL: Abdomen soft, non-tender, nondistended. MUSCULOSKELETAL: No cyanosis, or edema. BACK: Nontender without obvious deformity. No CVA tenderness. Awake alert oriented 3 fluent articulate no aphasia visual [place] full tongue midline no pronator drift gait not assessed secondary fall risk no neglect - Constitutional no acute distress - Routine HEENT Exam Head: Present: normocephalic Objective Laboratory Results - last 24 hr 01/26/18 01/26/1818 11:54 16:18 21:17 POC Glucose 256 H 312 H 251 H Review/Management - Diagnosis (1) TIA (transient ischemic attack) Code(s): G45.9 - Transient cerebral ischemic attack, unspecified Status: Acute Current Visit: Yes (2) HLD (hyperlipidemia) Code(s): E78.5 - Hyperlipidemia, unspecified Status: Acute Current Visit: Yes (3) HTN (hypertension) Code(s): I10 - Essential (primary) hypertension Status: Acute Current Visit : Yes (4) DM (diabetes mellitus) Code(s): E11.9 - Type 2 diabetes mellitus without complications Status: Acute Current Visit: Yes - Review/Management Plan: Symptoms suggestive of left MCA TIA In addition. Have hypertensive encephalopathy Recommendations Neurologically stable Follow-up MRI MRA brain; negative for acute stroke no vaso-occlusive disease 2D echo, carotid Doppler; no significant vaso-occlusive disease good ejection fraction Blood pressure control Aspirin Plavix. Stop aspirin after 3 months Telemetry Should get event monitor long-term heart monitoring by cardiology in versus outpatient defer to medical PT evaluation Discharge planning today from neurologic standpoint Can follow-up with us or her local neurologist where she lives in [place] follow-up with her primary care and cardiology (1) TIA (transient ischemic attack) Qualifiers: Transient cerebral ischemia type: carotid artery syndrome (hemispheric) Qualified Code(s): G45.1 - Carotid artery syndrome (hemispheric)
[2018-01-27 08:17] LABS: Baso % (Auto) 0.4 % (0.0-2.0); Eos % (Auto) 0.1 % (0.0-4.0); Hematocrit 45.6 % (35.0-46.0); Hemoglobin 15.4 gm/dL (11.6-15.3); Lymph # (Auto) 1.1 th/mm3 (1.0-4.8); Lymph % (Auto) 13.9 % (9.0-44.0); Mean Corpuscular HGB Conc 33.7 % (32.0-36.0); Mean Corpuscular Hemoglobin 29.5 pg (27.0-34.0); Mean Corpuscular Volume 87.6 fL (80.0-100.0); Mean Platelet Volume 8.3 fL (7.0-11.0); Mono # (Auto) 1.1 th/mm3 (0.0-0.9); Neut # (Auto) 5.9 th/mm3 (1.8-7.7); Neut % (Auto) 72.6 % (16.0-70.0); Platelet Count 246 th/mm3 (150-450); Red Blood Count 5.21 mil/mm3 (4.00-5.30); Red Cell Distribution Width 12.7 % (11.6-17.2); White Blood Count 8.1 th/mm3 (4.0-11.0)
[2018-01-27 09:01] LABS: Alanine Aminotransferase 60 U/L (10-53); Albumin 2.9 g/dL (3.4-5.0); Alkaline Phosphatase 324 U/L (45-117); Anion Gap 12 meq/L (5-15); Aspartate Aminotransferase 132 U/L (15-37); Blood Urea Nitrogen 13 mg/dL (7-18); Calcium 9.2 mg/dL (8.5-10.1); Carbon Dioxide 29.3 meq/L (21.0-32.0); Chloride 97 meq/L (98-107); Cholesterol 142 mg/dL (120-200); Glomerular Filtration Rate Greater Than 89 mL/min (>89); Glucose,Random 206 mg/dL (74-106); HDL Cholesterol 48.9 mg/dL (40.0-60.0); LDL Cholesterol,Calculated 69 mg/dL (0-99); Sodium 138 meq/L (136-145); Total Protein 7.3 g/dL (6.4-8.2); Triglycerides 120 mg/dL (42-150)
[2018-01-27 09:29] LABS: Potassium 2.8 meq/L (3.5-5.1)
[2018-01-27] MEDS: Levofloxacin 500 mg Premix Inj 500 MG/100 ML PIGGYBACK IV.SIG SCH (10:23)
[2018-01-27] MEDS: Enoxaparin Inj 40 MG/0.4 ML Syringe SQ SCH (10:24)
[2018-01-27] MEDS: Insulin NovoLOG Aspart Correctional Sugar Inj SQ SCH ×4 (10:24→22:09)
[2018-01-27] MEDS: Senna/Docusate Sodium 8.6/50 MG Tablet PO SCH ×2 (10:25→22:08)
[2018-01-27] MEDS: Lactobacillus Acidophilus/L. Spores Tablet PO SCH ×2 (12:32→17:41)
--- NOTE | 2018-01-27 12:34 | P.PNIM ---
Subjective Interval history: No acute distress in the patient. She is having an EEG when seen this morning. Additional findings since last visit are positive urinary tract infection which could be contributory to her neurologic symptoms. She also has hypokalemia this morning. Physical Exam Vital signs: Vital Signs 01/26/18 16:00 01/26/18 20:00 01/26/18 22:38 Temperature 97.7 F 98.8 F Pulse Rate 111 H 104 H Respiratory Rate 18 16 Blood Pressure 133/77 167/89 H Pulse Oximetry 92 L 93 L 93 L 01/27/18 00:00 01/27/18 01:00 01/27/18 04:00 Temperature 98.2 F 98.2 F Pulse Rate 120 H 116 H 110 H Respiratory Rate 17 16 Blood Pressure 176/96 H 182/94 H Pulse Oximetry 93 L 94 L 01/27/18 08:01 01/27/18 09:43 Temperature 98 F Pulse Rate 117 H Respiratory Rate 16 Blood Pressure 193/103 H Pulse Oximetry 93 L 93 L Intake & Output 01/26/18 01/27/18 01/27/18 18:59 06:59 18:59 Intake Total 720 / 720 Output Total 800 / 800 200 / 200 Balance -80 / -80 -200 / -200 Weight 65.6 kg Intake: Oral 720 / 720 Output: Urine 800 / 800 200 / 200 Other: Date of Last Bowel Movement 01/27/18 01/27/18 # Bowel Movements 1 1 1 Narrative: GENERAL: NAD, A&Ox3 HEAD: Normocephalic. NECK: Supple, trachea midline. No lymphadenopathy. EYES: No scleral icterus. No injection or drainage. CARDIOVASCULAR: Regular rate and rhythm without murmurs, gallops, or rubs. RESPIRATORY: Breath sounds equal bilaterally. No accessory muscle use. GASTROINTESTINAL: Abdomen soft, non-tender, nondistended. MUSCULOSKELETAL: No cyanosis, or edema. SKIN: Warm and dry. NEURO: No focal neurological deficits. Results - Labs CBC & Chem 7: 01/27/18 07:34 01/27/18 07:34 Laboratory Results - last 24 hr 01/26/18 01/26/18 01/26/18 11:54 16:18 21:17 WBC RBC Hgb Hct MCV MCH MCHC RDW Plt Count MPV Neut % (Auto) Lymph % (Auto) Hanson % (Auto) Eos % (Auto) Baso % (Auto) Neut # (Auto) Lymph # (Auto) [place] # (Auto) Eos # (Auto) Baso # (Auto) WBC Differential Differential Comment Sodium Potassium Chloride Carbon Dioxide Anion Gap BUN Creatinine Estimated GFR POC Glucose 256 H 312 H 251 H Random Glucose Calcium Total Bilirubin AST ALT Alkaline Phosphatase Total Protein Albumin Triglycerides Cholesterol LDL Cholesterol, Calc HDL Cholesterol Cholesterol/HDL Ratio 01/27/18 01/27/18 01/27/18 07:34 07:34 08:02 WBC 8.1 RBC 5.21 Hgb 15.4 H Hct 45.6 MCV 87.6 MCH 29.5 MCHC 33.7 RDW 12.7 Plt Count 246 MPV 8.3 Neut % (Auto) 72.6 H Lymph % (Auto) 13.9 Hanson % (Auto) 13.0 H Eos % (Auto) 0.1 Baso % (Auto) 0.4 Neut # (Auto) 5.9 Lymph # (Auto) 1.1 Hanson # (Auto) 1.1 H Eos # (Auto) 0.0 Baso # (Auto) 0.0 WBC Differential . Differential Comment Auto diff final Sodium 138 Potassium 2.8 L* D Chloride 97 L Carbon Dioxide 29.3 Anion Gap 12 BUN 13 Creatinine 0.55 Estimated GFR Greater than 89 POC Glucose 222 H Random Glucose 206 H D Calcium 9.2 Total Bilirubin 0.9 AST 132 H ALT 60 H Alkaline Phosphatase 324 H Total Protein 7.3 Albumin 2.9 L Triglycerides 120 Cholesterol 142 LDL Cholesterol, Calc 69 HDL Cholesterol 48.9 Cholesterol/HDL Ratio 2.90 01/27/18 11:32 WBC RBC Hgb Hct MCV MCH MCHC RDW Plt Count MPV Neut % (Auto) Lymph % (Auto) Hanson % (Auto) Eos % (Auto) Baso % (Auto) Neut # (Auto) Lymph # (Auto) Hanson # (Auto) Eos # (Auto) Baso # (Auto) WBC Differential Differential Comment Sodium Potassium Chloride Carbon Dioxide Anion Gap BUN Creatinine Estimated GFR POC Glucose 279 H Random Glucose Calcium Total Bilirubin AST ALT Alkaline Phosphatase Total Protein Albumin Triglycerides Cholesterol LDL Cholesterol, Calc HDL Cholesterol Cholesterol/HDL Ratio - Imaging Impressions Head MRI 01/26/18 00:00 CONCLUSION: 1. Moderate atrophic changes and extensive chronic small vessel ischemic change. 2. No acute hemorrhage, mass or evidence of acute infarction. Carotid Doppler Study 01/26/18 10:18 CONCLUSION: 1. Right Internal Carotid Artery: Mild visible plaque without stenosis. 2. Left Internal Carotid Artery: Mild visible plaque without stenosis. Head MRA 01/26/18 10:18 CONCLUSION: 1. Negative MRA head. Assessment and Plan - Assessment (1) TIA (transient ischemic attack) Code(s): G45.9 - Transient cerebral ischemic attack, unspecified Status: Acute (2) HTN (hypertension) Code(s): I10 - Essential (primary) hypertension Status: Acute (3) DM (diabetes mellitus) Code(s): E11.9 - Type 2 diabetes mellitus without complications Status: Acute - Plan 87-year-old female brought to the ER for facial droop and expressive aphasia. Probable Acute CVA No acute findings on imaging EEG pending Neurology following Hypokalemia Replace and monitor Urinary tract infection Rocephin initiated Follow cultures Diabetes mellitus type 2 Follow blood sugars Insulin sliding scale Diabetic diet DVT prophylaxis Lovenox Discharge planning Pending neurological clearance and resolution of hypokalemia (1) TIA (transient ischemic attack) Qualifiers: Transient cerebral ischemia type: carotid artery syndrome (hemispheric) Qualified Code(s): G45.1 - Carotid artery syndrome (hemispheric)
[2018-01-27 16:43] LABS: Hemoglobin A1c 11.8 % (4.3-6.0)
--- NOTE | 2018-01-27 16:45 | MG ---
cc: Rio Brown MD EEG NUMBER: [id number] INDICATIONS: An 87-year-old with white matter changes, change in mental status. MEDICATIONS: Lipitor. FINDINGS: A 7 Hz, 60 microvolt symmetric diffuse rhythm is seen. The recording overall is synchronous and symmetric. Some mouth movements. Snoring is noted. No hemisphere asymmetry is noted. No epileptiform or seizure activity is seen. She does not reach stage II sleep. Photic stimulation is performed with some sharply contoured waves at the higher frequencies, especially over the left parieto-occipital head region at epoch 107. Looks like some driving there of high-frequency. IMPRESSION: A lot of snoring was noted. Sleep apnea could be considered. There was an asymmetry in the high-frequency driving over the left occipital head region, not seen as well over the right. Occipital abnormality could be ruled out. Otherwise, this was consistent with a mild diffuse encephalopathy. No seizure activity was seen. MD JAVIER Hernandez/DARIN , 03:47 PM , 04:45 PM
[2018-01-27] MEDS: Potassium Chlor 20 mEq Premix 20 MEQ/100 ML PIGGYBACK IV.SIG SCH ×2 (22:07→23:46)
[2018-01-27] MEDS: Insulin Detemir Inj 1,000 UNIT/10 ML Vial SQ SCH (22:11)
[2018-01-28 08:18] LABS: Anion Gap 10 meq/L (5-15); Blood Urea Nitrogen 18 mg/dL (7-18); Carbon Dioxide 30.2 meq/L (21.0-32.0); Chloride 99 meq/L (98-107); Glomerular Filtration Rate Greater Than 89 mL/min (>89); Glucose,Random 164 mg/dL (74-106); Potassium 3.1 meq/L (3.5-5.1); Sodium 139 meq/L (136-145)
[2018-01-28] MEDS: Lactobacillus Acidophilus/L. Spores Tablet PO SCH ×3 (08:30→17:10)
[2018-01-28] MEDS: Enoxaparin Inj 40 MG/0.4 ML Syringe SQ SCH (08:30)
[2018-01-28] MEDS: Insulin NovoLOG Aspart Correctional Sugar Inj SQ SCH ×3 (08:31→17:10)
[2018-01-28] MEDS: Senna/Docusate Sodium 8.6/50 MG Tablet PO SCH ×2 (08:32→21:32)
[2018-01-28] MEDS: Levofloxacin 500 mg Premix Inj 500 MG/100 ML PIGGYBACK IV.SIG SCH (10:00)
[2018-01-28] MEDS: Potassium Chlor 20 mEq Premix 20 MEQ/100 ML PIGGYBACK IV.SIG SCH ×2 (12:44→17:11)
--- NOTE | 2018-01-28 14:09 | P.PNIM ---
Subjective Interval history: Potassium remains low this morning. No pain complaints from patient. No neurologic changes. Physical Exam Vital signs: Vital Signs 01/27/18 15:26 01/27/18 16:00 01/27/18 23:01 Temperature 98.1 F 98 F Pulse Rate 110 H 113 H 86 Respiratory Rate 18 20 Blood Pressure 168/99 H 200/99 H Pulse Oximetry 92 L 94 L 01/27/18 23:31 01/28/18 01:00 01/28/18 01:15 Temperature 97.9 F 98.8 F Pulse Rate 86 106 H 85 Respiratory Rate 18 21 Blood Pressure 193/91 H 189/94 H Pulse Oximetry 93 L 96 01/28/18 02:28 01/28/18 03:50 01/28/18 05:30 Temperature 98.7 F 98 F Pulse Rate 87 95 H 87 Respiratory Rate 18 22 Blood Pressure 137/80 155/78 H Pulse Oximetry 94 L 96 01/28/18 08:00 01/28/18 12:00 Temperature 100.3 F H 97.9 F Pulse Rate 88 92 H Respiratory Rate 20 20 Blood Pressure 191/88 H 132/67 Pulse Oximetry 95 93 L Intake & Output 01/27/18 01/28/18 01/28/18 18:59 06:59 18:59 Intake Total 1790 / 1790 360 / 360 Output Total 200 / 200 0 / 0 Balance -200 / -200 1790 / 1790 359 / 359 Weight 66 kg Intake: IV 300 / 300 Levaquin 500 mg Premix Inj 500 100 / 100 mg In 100 ml @ 100 mls/hr IV. SIG Q24H [facility]REZ Rx#:[id number] KCl 20 mEq Premix Inj 20 meq In 200 / 200 100 ml @ 50 mls/hr IV.SIG Q2H [facility]ÍREZ Rx#:[id number] Oral 1490 / 1490 360 / 360 Output: Urine 200 / 200 0 / 0 Stool / Other: # Voids 2 Date of Last Bowel Movement 01/27/18 01/26/18 01/28/18 # Bowel Movements 1 0 Narrative: GENERAL: NAD, A&Ox3 HEAD: Normocephalic. NECK: Supple, trachea midline. No lymphadenopathy. EYES: No scleral icterus. No injection or drainage. CARDIOVASCULAR: Regular rate and rhythm without murmurs, gallops, or rubs. RESPIRATORY: Breath sounds equal bilaterally. No accessory muscle use. GASTROINTESTINAL: Abdomen soft, non-tender, nondistended. MUSCULOSKELETAL: No cyanosis, or edema. SKIN: Warm and dry. NEURO: No focal neurological deficits. Results - Labs CBC & Chem 7: 01/27/18 07:34 01/28/18 13:03 Laboratory Results - last 24 hr 01/27/18 01/27/18 01/27/18 07:34 16:51 17:00 Sodium Potassium 2.9 L* Chloride Carbon Dioxide Anion Gap BUN Creatinine Estimated GFR POC Glucose 216 H Random Glucose Hemoglobin A1c 11.8 H Calcium 01/27/18 01/28/18 01/28/18 22:00 06:58 07:42 Sodium 139 Potassium 3.1 L Chloride 99 Carbon Dioxide 30.2 Anion Gap 10 BUN 18 Creatinine 0.56 Estimated GFR Greater than 89 POC Glucose 203 H 175 H Random Glucose 164 H Hemoglobin A1c Calcium 9.0 01/28/18 01/28/18 11:47 13:03 Sodium Potassium 3.4 L Chloride Carbon Dioxide Anion Gap BUN Creatinine Estimated GFR POC Glucose 213 H Random Glucose Hemoglobin A1c Calcium Microbiology 01/26/18 01:55 Clean Catch Urine Urine Culture - Final 50-100,000 cfu/mL mixed gram positive danielito (probable contaminants) Assessment and Plan - Assessment (1) TIA (transient ischemic attack) Code(s): G45.9 - Transient cerebral ischemic attack, unspecified Status: Acute (2) HTN (hypertension) Code(s): I10 - Essential (primary) hypertension Status: Acute (3) DM (diabetes mellitus) Code(s): E11.9 - Type 2 diabetes mellitus without complications Status: Acute - Plan 87-year-old female brought to the ER for facial droop and expressive aphasia. Neurologic symptoms improved. Follow urine cultures. Continue to treat hypokalemia and follow till resolved. Probable Acute CVA No acute findings on imaging EEG pending Neurology following Hypokalemia Replace and monitor Urinary tract infection Rocephin initiated Follow cultures Diabetes mellitus type 2 Follow blood sugars Insulin sliding scale Diabetic diet DVT prophylaxis Lovenox Discharge planning Pending neurological clearance and resolution of hypokalemia (1) TIA (transient ischemic attack) Qualifiers: Transient cerebral ischemia type: carotid artery syndrome (hemispheric) Qualified Code(s): G45.1 - Carotid artery syndrome (hemispheric)
--- NOTE | 2018-01-28 15:36 | P.PNNEU ---
Subjective Subjective Comments: No acute events reported No headache No chest pain No dyspnea Active Medications: Active Medications Al Hydroxide/Mg Hydroxide (Milk Of Magnesia Liq) 30 ml PO Q12H PRN PRN Reason: Mild Constipation Aspirin (Ecotrin) 81 mg PO DAILY [facility] Last Admin: 01/28/18 08:31 Dose: Not Given Atorvastatin Calcium (Lipitor) 40 mg PO HS [facility] Last Admin: 01/27/18 22:09 Dose: 40 mg Bisacodyl (Dulcolax Supp) 10 mg RECTAL DAILY PRN PRN Reason: SEVERE CONSITIPATION Clonidine HCl (Catapres) 0.1 mg PO Q6H PRN PRN Reason: SYS BP GREATER THAN 160 [facility] Last Admin: 01/28/18 08:30 Dose: 0.1 mg Clopidogrel Bisulfate (Plavix) 75 mg PO DAILY [facility] Last Admin: 01/28/18 08:30 Dose: 75 mg Dextrose (D50w Vial) 50 ml IV.PUSH UNSCH PRN PRN Reason: PER HYPOGLYCEMIA PROTOCOL Enalaprilat (Vasotec Inj) 1.25 mg IV.PUSH Q4H PRN PRN Reason: For SBP > 220 or DBP > 120 Enoxaparin Sodium (Lovenox Inj) 40 mg SQ DAILY [facility] Last Admin: 01/28/18 08:30 Dose: 40 mg Glucagon (Glucagon Inj) 1 mg OTHER PRN PRN PRN Reason: for Hypoglycemia Protocol Levofloxacin/Dextrose (Levaquin 500 Mg Premix Inj) 500 mg in 100 mls @ 100 mls/ hr IV.SIG Q24H [facility] Last Admin: 01/28/18 10:00 Dose: 100 mls/hr Insulin Aspart (Novolog Insulin Correctional Sugar Inj) 0 unit SQ [facility]; Protocol Last Admin: 01/28/18 12:45 Dose: 100 unit Insulin Detemir (Levemir Inj) 7 unit SQ [facility] Last Admin: 01/27/18 22:11 Dose: 7 unit Lactobacillus Acidophilus (Lactinex) 1 tab PO TID [facility] Last Admin: 01/28/18 12:45 Dose: Not Given Lactulose (Lactulose Liq) 30 ml PO DAILY PRN PRN Reason: SEVERE CONSITIPATION Ondansetron HCl (Zofran Odt) 4 mg PO Q6H PRN PRN Reason: NAUSEA OR VOMITING Senna/Docusate Sodium (Ailyn-Colace) 1 tab PO BID [facility] Last Admin: 01/28/18 08:32 Dose: Not Given Sennosides (Senokot) 17.2 mg PO Q12H PRN PRN Reason: Moderate Constipation Sodium Chloride (Ns Flush) 2 ml IV.FLUSH BID [facility] Last Admin: 01/28/18 08:32 Dose: 2 ml Sodium Chloride (Ns Flush) 2 ml IV.FLUSH PRN PRN PRN Reason: FLUSH AFTER USING IV ACCESS Temazepam (Restoril) 15 mg PO HS PRN PRN Reason: INSOMNIA Last Admin: 01/27/18 22:14 Dose: 15 mg Allergies/Adverse Reactions: Allergies Allergy/AdvReac Type Severity Reaction Status Date / Time NSAIDS (Non-Steroidal Allergy Hives Verified 01/25/18 21:01 Anti-Inflamma Penicillins Allergy Hives Verified 01/25/18 21:01 Review of Systems All other systems reviewed negative except as stated in HPI Physical Exam Vital signs: Vital Signs 01/27/18 16:00 01/27/18 23:01 01/27/18 23:31 Temperature 98 F 97.9 F Pulse Rate 113 H 86 86 Respiratory Rate 20 18 Blood Pressure 200/99 H 193/91 H Pulse Oximetry 94 L 93 L 01/28/18 01:00 01/28/18 01:15 01/28/18 02:28 Temperature 98.8 F 98.7 F Pulse Rate 106 H 85 87 Respiratory Rate 21 18 Blood Pressure 189/94 H 137/80 Pulse Oximetry 96 94 L 01/28/18 03:50 01/28/18 05:30 01/28/18 08:00 Temperature 98 F 100.3 F H Pulse Rate 95 H 87 88 Respiratory Rate 22 20 Blood Pressure 155/78 H 191/88 H Pulse Oximetry 96 95 01/28/18 12:00 Temperature 97.9 F Pulse Rate 92 H Respiratory Rate 20 Blood Pressure 132/67 Pulse Oximetry 93 L Intake & Output 01/27/18 01/28/18 01/28/18 18:59 06:59 18:59 Intake Total 1790 / 1790 360 / 360 Output Total 200 / 200 0 / 0 1 / Balance -200 / -200 1790 / 1790 359 / 359 Weight 66 kg Intake: IV 300 / 300 Levaquin 500 mg Premix Inj 500 100 / 100 mg In 100 ml @ 100 mls/hr IV. SIG Q24H [facility]REZ Rx#:[id number] KCl 20 mEq Premix Inj 20 meq In 200 / 200 100 ml @ 50 mls/hr IV.SIG Q2H [facility] Rx#:[id number] Oral 1490 / 1490 360 / 360 Output: Urine 200 / 200 0 / 0 Stool 1 / 1 Other: # Voids 2 Date of Last Bowel Movement 01/27/18 01/26/18 01/28/18 # Bowel Movements 1 0 Narrative: GENERAL: NAD, A&Ox3 HEAD: Normocephalic. NECK: Supple, trachea midline. EYES: No scleral icterus. MUSCULOSKELETAL: No cyanosis, or edema. SKIN: Warm and dry. NEURO: Awake alert oriented 3 sitting up on a commode looks well no facial asymmetry moving all extremities gravity articulate fluent - Constitutional no acute distress - Routine HEENT Exam Head: Present: normocephalic Eye: Present: EOMI Objective Laboratory Results - last 24 hr 01/27/18 01/27/18 01/27/18 07:34 16:51 17:00 Sodium Potassium 2.9 L* Chloride Carbon Dioxide Anion Gap BUN Creatinine Estimated GFR POC Glucose 216 H Random Glucose Hemoglobin A1c 11.8 H Calcium 01/27/18 01/28/18 01/28/18 22:00 06:58 07:42 Sodium 139 Potassium 3.1 L Chloride 99 Carbon Dioxide 30.2 Anion Gap 10 BUN 18 Creatinine 0.56 Estimated GFR Greater than 89 POC Glucose 203 H 175 H Random Glucose 164 H Hemoglobin A1c Calcium 9.0 01/28/18 01/28/18 11:47 13:03 Sodium Potassium 3.4 L Chloride Carbon Dioxide Anion Gap BUN Creatinine Estimated GFR POC Glucose 213 H Random Glucose Hemoglobin A1c Calcium Microbiology 01/26/18 01:55 Urine Culture - Final Clean Catch Urine 50-100,000 cfu/mL mixed gram positive danielito (probable contaminants) Review/Management - Diagnosis (1) TIA (transient ischemic attack) Code(s): G45.9 - Transient cerebral ischemic attack, unspecified Status: Acute Current Visit: Yes (2) HLD (hyperlipidemia) Code(s): E78.5 - Hyperlipidemia, unspecified Status: Acute Current Visit: Yes (3) HTN (hypertension) Code(s): I10 - Essential (primary) hypertension Status: Acute Current Visit : Yes (4) DM (diabetes mellitus) Code(s): E11.9 - Type 2 diabetes mellitus without complications Status: Acute Current Visit: Yes - Review/Management Plan: Symptoms suggestive of left MCA TIA In addition. Have hypertensive encephalopathy Recommendations Neurologically stable Follow-up MRI MRA brain; negative for acute stroke no vaso-occlusive disease 2D echo, carotid Doppler; no significant vaso-occlusive disease good ejection fraction Blood pressure control Aspirin Plavix. Stop aspirin after 3 months Telemetry Should get event monitor long-term heart monitoring by cardiology in versus outpatient defer to medical PT evaluation Discharge planning today from neurologic standpoint Can follow-up with us or her local neurologist where she lives in [place] follow-up with her primary care and cardiology (1) TIA (transient ischemic attack) Qualifiers: Transient cerebral ischemia type: carotid artery syndrome (hemispheric) Qualified Code(s): G45.1 - Carotid artery syndrome (hemispheric)
[2018-01-28] MEDS: Insulin Detemir Inj 1,000 UNIT/10 ML Vial SQ SCH (21:30)
[2018-01-29] MEDS: Insulin NovoLOG Aspart Correctional Sugar Inj SQ SCH ×3 (01:53→13:21)
--- NOTE | 2018-01-29 07:43 | P.PNNEU ---
Subjective Subjective Comments: No acute events reported No headache No chest pain No dyspnea Active Medications: Active Medications Al Hydroxide/Mg Hydroxide (Milk Of Magnesia Liq) 30 ml PO Q12H PRN PRN Reason: Mild Constipation Aspirin (Ecotrin) 81 mg PO DAILY [facility] Last Admin: 01/28/18 08:31 Dose: Not Given Atorvastatin Calcium (Lipitor) 40 mg PO HS [facility] Last Admin: 01/28/18 21:32 Dose: 40 mg Bisacodyl (Dulcolax Supp) 10 mg RECTAL DAILY PRN PRN Reason: SEVERE CONSITIPATION Clonidine HCl (Catapres) 0.1 mg PO Q6H PRN PRN Reason: SYS BP GREATER THAN 160 MMHG Last Admin: 01/28/18 08:30 Dose: 0.1 mg Clopidogrel Bisulfate (Plavix) 75 mg PO DAILY [facility] Last Admin: 01/28/18 08:30 Dose: 75 mg Dextrose (D50w Vial) 50 ml IV.PUSH UNSCH PRN PRN Reason: PER HYPOGLYCEMIA PROTOCOL Enalaprilat (Vasotec Inj) 1.25 mg IV.PUSH Q4H PRN PRN Reason: For SBP > 220 or DBP > 120 Enoxaparin Sodium (Lovenox Inj) 40 mg SQ DAILY [facility] Last Admin: 01/28/18 08:30 Dose: 40 mg Glucagon (Glucagon Inj) 1 mg OTHER PRN PRN PRN Reason: for Hypoglycemia Protocol Levofloxacin/Dextrose (Levaquin 500 Mg Premix Inj) 500 mg in 100 mls @ 100 mls/ hr IV.SIG Q24H [facility] Last Admin: 01/28/18 10:00 Dose: 100 mls/hr Insulin Aspart (Novolog Insulin Correctional Sugar Inj) 0 unit SQ [facility]; Protocol Last Admin: 01/29/18 01:53 Dose: 3 unit Insulin Detemir (Levemir Inj) 7 unit SQ [facility] Last Admin: 01/28/18 21:30 Dose: 7 unit Lactobacillus Acidophilus (Lactinex) 1 tab PO TID [facility] Last Admin: 01/28/18 17:10 Dose: Not Given Lactulose (Lactulose Liq) 30 ml PO DAILY PRN PRN Reason: SEVERE CONSITIPATION Ondansetron HCl (Zofran Odt) 4 mg PO Q6H PRN PRN Reason: NAUSEA OR VOMITING Senna/Docusate Sodium (Ailyn-Colace) 1 tab PO BID [facility] Last Admin: 01/28/18 21:32 Dose: Not Given Sennosides (Senokot) 17.2 mg PO Q12H PRN PRN Reason: Moderate Constipation Sodium Chloride (Ns Flush) 2 ml IV.FLUSH BID [facility] Last Admin: 01/28/18 21:32 Dose: 2 ml Sodium Chloride (Ns Flush) 2 ml IV.FLUSH PRN PRN PRN Reason: FLUSH AFTER USING IV ACCESS Temazepam (Restoril) 15 mg PO HS PRN PRN Reason: INSOMNIA Last Admin: 01/27/18 22:14 Dose: 15 mg Allergies/Adverse Reactions: Allergies Allergy/AdvReac Type Severity Reaction Status Date / Time NSAIDS (Non-Steroidal Allergy Hives Verified 01/25/18 21:01 Anti-Inflamma Penicillins Allergy Hives Verified 01/25/18 21:01 Review of Systems All other systems reviewed negative except as stated in HPI Physical Exam Vital signs: Vital Signs 01/28/18 08:00 01/28/18 12:00 01/28/18 16:00 Temperature 100.3 F H 97.9 F 98 F Pulse Rate 88 92 H 107 H Respiratory Rate 20 20 20 Blood Pressure 191/88 H 132/67 129/68 Pulse Oximetry 95 93 L 95 01/28/18 21:30 01/29/18 00:10 Temperature 108 F H 98 F Pulse Rate 17 L 105 H Respiratory Rate 17 17 Blood Pressure 160/77 H 155/69 H Pulse Oximetry 93 L 97 Intake & Output 01/28/18 01/29/18 01/29/18 18:59 06:59 18:59 Intake Total 460 / 460 500 / 500 Output Total 3 / 3 Balance 457 / 457 500 / 500 Intake: IV 100 / 100 KCl 20 mEq Premix Inj 20 meq In 100 / 100 100 ml @ 50 mls/hr IV.SIG Q2H [facility] Rx#:[id number] Oral 360 / 360 500 / 500 Output: Urine 2 / 2 Stool 1 / 1 Other: # Voids 1 Date of Last Bowel Movement 01/28/18 # Bowel Movements 0 Narrative: GENERAL: NAD, A&Ox3 HEAD: Normocephalic. NECK: Supple, trachea midline. EYES: No scleral icterus. MUSCULOSKELETAL: No cyanosis, or edema. SKIN: Warm and dry. NEURO: Awake alert oriented 3 sitting up on a commode looks well no facial asymmetry moving all extremities gravity articulate fluent Objective Laboratory Results - last 24 hr 01/28/18 01/28/18 01/28/18 06:58 07:42 11:47 Sodium 139 Potassium 3.1 L Chloride 99 Carbon Dioxide 30.2 Anion Gap 10 BUN 18 Creatinine 0.56 Estimated GFR Greater than 89 POC Glucose 175 H 213 H Random Glucose 164 H Calcium 9.0 01/28/18 01/28/18 01/28/18 13:03 15:44 21:28 Sodium Potassium 3.4 L Chloride Carbon Dioxide Anion Gap BUN Creatinine Estimated GFR POC Glucose 185 H 212 H Random Glucose Calcium Review/Management - Diagnosis (1) TIA (transient ischemic attack) Code(s): G45.9 - Transient cerebral ischemic attack, unspecified Status: Acute Current Visit: Yes (2) HLD (hyperlipidemia) Code(s): E78.5 - Hyperlipidemia, unspecified Status: Acute Current Visit: Yes (3) HTN (hypertension) Code(s): I10 - Essential (primary) hypertension Status: Acute Current Visit : Yes (4) DM (diabetes mellitus) Code(s): E11.9 - Type 2 diabetes mellitus without complications Status: Acute Current Visit: Yes - Review/Management Plan: Symptoms suggestive of left MCA TIA In addition. Have hypertensive encephalopathy Recommendations Neurologically stable Follow-up MRI MRA brain; negative for acute stroke no vaso-occlusive disease 2D echo, carotid Doppler; no significant vaso-occlusive disease good ejection fraction Blood pressure control Aspirin Plavix. Stop aspirin after 3 months Telemetry Should get event monitor long-term heart monitoring by cardiology in versus outpatient defer to medical PT evaluation Discharge planning today from neurologic standpoint Can follow-up with us or her local neurologist where she lives in [place] follow-up with her primary care and cardiology (1) TIA (transient ischemic attack) Qualifiers: Transient cerebral ischemia type: carotid artery syndrome (hemispheric) Qualified Code(s): G45.1 - Carotid artery syndrome (hemispheric)
[2018-01-29 08:55] LABS: Baso % (Auto) 0.5 % (0.0-2.0); Eos % (Auto) 0.3 % (0.0-4.0); Hematocrit 44.2 % (35.0-46.0); Hemoglobin 14.5 gm/dL (11.6-15.3); Lymph # (Auto) 1.6 th/mm3 (1.0-4.8); Lymph % (Auto) 21.8 % (9.0-44.0); Mean Corpuscular HGB Conc 32.8 % (32.0-36.0); Mean Corpuscular Hemoglobin 28.9 pg (27.0-34.0); Mean Corpuscular Volume 88.1 fL (80.0-100.0); Mean Platelet Volume 8.3 fL (7.0-11.0); Mono # (Auto) 0.9 th/mm3 (0.0-0.9); Mono % (Auto) 12.8 % (0.0-8.0); Neut # (Auto) 4.7 th/mm3 (1.8-7.7); Neut % (Auto) 64.6 % (16.0-70.0); Platelet Count 239 th/mm3 (150-450); Red Blood Count 5.02 mil/mm3 (4.00-5.30); Red Cell Distribution Width 13.3 % (11.6-17.2); White Blood Count 7.2 th/mm3 (4.0-11.0)
[2018-01-29 09:18] LABS: Albumin 2.6 g/dL (3.4-5.0); Anion Gap 10 meq/L (5-15); Aspartate Aminotransferase 115 U/L (15-37); Blood Urea Nitrogen 20 mg/dL (7-18); Calcium 8.7 mg/dL (8.5-10.1); Carbon Dioxide 29.4 meq/L (21.0-32.0); Chloride 101 meq/L (98-107); Glomerular Filtration Rate 88 mL/min (>89); Glucose,Random 120 mg/dL (74-106); Magnesium 1.9 mg/dL (1.5-2.5); Potassium 3.4 meq/L (3.5-5.1); Sodium 140 meq/L (136-145)
[2018-01-29 09:19] LABS: Alanine Aminotransferase 55 U/L (10-53)
[2018-01-29 09:21] LABS: Alkaline Phosphatase 303 U/L (45-117); Total Protein 6.7 g/dL (6.4-8.2)
[2018-01-29] MEDS: Enoxaparin Inj 40 MG/0.4 ML Syringe SQ SCH (09:37)
[2018-01-29] MEDS: Lactobacillus Acidophilus/L. Spores Tablet PO SCH ×2 (09:37→12:10)
[2018-01-29] MEDS: Senna/Docusate Sodium 8.6/50 MG Tablet PO SCH (09:37)
[2018-01-29] MEDS: Levofloxacin 500 mg Premix Inj 500 MG/100 ML PIGGYBACK IV.SIG SCH (09:41)
[2018-01-29 12:48] VITALS: BP 160/78; PULSE 98; RESP 23; TEMP 98; O2SAT 95
--- NOTE | 2018-01-29 14:34 | P.DS ---
Date of admission: 01/26/18 00:29 Primary care physician: UNKNOWN Brief History from admission: This is an 87-year-old female with a PMH of HTN and DM who was brought to the ER for facial droop and expressive aphasia. Per report, daughter spoke to patient over the phone and noticed she had some slurred speech, EMS was called approximately 2 hours later at which time symptoms had resolved. Denies any motor weakness. On arrival, BP 221/98, HR 100, O2 sat 98% on 2L NC, Afebrile. S/p Labetalol in ER w/ BP 180's. Chemistry essentially unremarkable. INR 1.2. UA pending. CT Head with atrophy and extensive chronic small vessel ischemic changes. CXR with no acute findings. DS: Diagnosis - Discharge Diagnosis (1) TIA (transient ischemic attack) Status: Acute (2) HTN (hypertension) Status: Acute (3) DM (diabetes mellitus) Status: Acute DS: Medications - Discharge Medications Prescriptions: acidophilus-sporogenes [Acidophilus Ex Str (L. sporog)] 1 tab PO TID #30 tab aspirin 81 mg PO DAILY #30 tab atorvastatin 40 mg PO HS #30 tab clopidogrel [Plavix] 75 mg PO DAILY #30 tab levofloxacin [Levaquin] 500 mg PO DAILY #5 tab potassium chloride 20 meq PO DAILY 4 Days #8 tab DS: Summary Hospital Course: Mr. Fitzpatrick is an 87 year old female. She came into the hospital due to acute confussion, which may have been TIA. However, patient was also found to have a UTI. Treatments are initiated for this. She also has hypokalemia which has been treated with replacement supplements. Mental status has improved. She is weak and will need a SNF at discharge with continuation of PT. Potassium corrected today. She is now ready for discharge and medically cleared for such. - Time Spent with Patient Total time spent providing and/or coordinating discharge services: - Quality: VTE Deep Vein Thrombosis/Pulmonary Embolism Present on Admission: No Exam Vital signs: Vital Signs 01/28/18 16:00 01/28/18 21:30 01/29/18 00:10 Temperature 98 F 108 F H 98 F Pulse Rate 107 H 17 L 105 H Respiratory Rate 20 17 17 Blood Pressure 129/68 160/77 H 155/69 H Pulse Oximetry 95 93 L 97 01/29/18 05:30 01/29/18 08:00 01/29/18 12:00 Temperature 98 F 97.8 F 98 F Pulse Rate 89 103 H 98 H Respiratory Rate 20 24 23 Blood Pressure 150/80 H 180/88 H 160/78 H Pulse Oximetry 95 94 L 95 Intake & Output 01/28/18 01/29/18 01/29/18 18:59 06:59 18:59 Intake Total 560 / 560 800 / 800 Output Total 3 / 3 Balance 557 / 557 800 / 800 Weight 66 kg Intake: IV 200 / 200 Levaquin 500 mg Premix Inj 500 100 / 100 mg In 100 ml @ 100 mls/hr IV. SIG Q24H [facility] Rx#:[id number] KCl 20 mEq Premix Inj 20 meq In 100 / 100 100 ml @ 50 mls/hr IV.SIG Q2H [facility] Rx#:[id number] Oral 360 / 360 800 / 800 Output: Urine 2 / 2 Stool 1 / Other: # Voids 1 Date of Last Bowel Movement 01/28/18 # Bowel Movements 0 Results Procedures completed during hospitalization: none Labs on day of discharge: Labs from last 24 hours 01/29/18 01/29/18 01/29/18 13:45 12:11 07:50 WBC RBC Hgb Hct MCV MCH MCHC RDW Plt Count MPV Neut % (Auto) Lymph % (Auto) [place] % (Auto) Eos % (Auto) Baso % (Auto) Neut # (Auto) Lymph # (Auto) [place] # (Auto) Eos # (Auto) Baso # (Auto) WBC Differential Differential Comment Sodium 140 Potassium Pending 3.4 L Chloride 101 Carbon Dioxide 29.4 Anion Gap 10 BUN 20 H Creatinine 0.64 Estimated GFR 88 L POC Glucose 188 H Random Glucose 120 H Calcium 8.7 Magnesium 1.9 Total Bilirubin 0.6 AST 115 H ALT 55 H Alkaline Phosphatase 303 H Total Protein 6.7 D Albumin 2.6 L 01/29/18 01/29/18 01/28/18 07:50 07:38 21:28 WBC 7.2 RBC 5.02 Hgb 14.5 Hct 44.2 MCV 88.1 MCH 28.9 MCHC 32.8 RDW 13.3 Plt Count 239 MPV 8.3 Neut % (Auto) 64.6 Lymph % (Auto) 21.8 [place] % (Auto) 12.8 H Eos % (Auto) 0.3 Baso % (Auto) 0.5 Neut # (Auto) 4.7 Lymph # (Auto) 1.6 [place] # (Auto) 0.9 Eos # (Auto) 0.0 Baso # (Auto) 0.0 WBC Differential . Differential Comment Auto diff final Sodium Potassium Chloride Carbon Dioxide Anion Gap BUN Creatinine Estimated GFR POC Glucose 124 H 212 H Random Glucose Calcium Magnesium Total Bilirubin AST ALT Alkaline Phosphatase Total Protein Albumin 01/28/18 15:44 WBC RBC Hgb Hct MCV MCH MCHC RDW Plt Count MPV Neut % (Auto) Lymph % (Auto) [place] % (Auto) Eos % (Auto) Baso % (Auto) Neut # (Auto) Lymph # (Auto) [place] # (Auto) Eos # (Auto) Baso # (Auto) WBC Differential Differential Comment Sodium Potassium Chloride Carbon Dioxide Anion Gap BUN Creatinine Estimated GFR POC Glucose 185 H Random Glucose Calcium Magnesium Total Bilirubin AST ALT Alkaline Phosphatase Total Protein Albumin - Impressions ITS Impressions Head CT 01/25/18 21:15 CONCLUSION: 1. Atrophy and extensive chronic small vessel ischemic changes. Chest X-Ray 01/25/18 21:16 CONCLUSION: No acute cardiopulmonary disease. Head MRI 01/26/18 00:00 CONCLUSION: 1. Moderate atrophic changes and extensive chronic small vessel ischemic change. 2. No acute hemorrhage, mass or evidence of acute infarction. Carotid Doppler Study 01/26/18 10:18 CONCLUSION: 1. Right Internal Carotid Artery: Mild visible plaque without stenosis. 2. Left Internal Carotid Artery: Mild visible plaque without stenosis. Head MRA 01/26/18 10:18 CONCLUSION: 1. Negative MRA head. Discharge Plan - Discharge Disposition Patient Disposition: Discharge to SNF - Discharge Condition Condition: Stable - Discharge Order Discharge Orders: Discharge Order (Routine); Ordered 01/29/18 Ordered By: Fernando De Souza - Discharge Details Anticipated Discharge Date: 01/29/18 - Physicians Team Primary Care Provider: UNKNOWN, Attending Provider: Fernando De Souza Other Providers: Kayden Coker MD ; [employer]
== END 2018-01-29 17:45 ==
LOC: NEPC 20:27 → NEDA 01-26 00:29 → N05 01-26 03:48
PROVIDERS: ADMIT Hospitalist; ATTEND Hospitalist